=== PATIENT | female | born 1955 | race Caucasian/White ===

== ENCOUNTER 2025-02-26 10:25 | Inpatient (IN) | payer MEDICARE ==
[2025-02-26] VITALS (11 sets, daily range): BP systolic 103–154; BP diastolic 65–90; PULSE 59–73; RESP 14–21; TEMP 97.3–98.2; O2SAT 93–98
[~2025-02-26] VITALS: Ht 152.4 cm; Wt 53.1 kg
[2025-02-26] MEDS ORDERED: NIFEDIPINE ER30 M1 PO (11:35)
[2025-02-26] MEDS ORDERED: CARVEDILOL3.125 MG PO (11:35)
[2025-02-26 13:48] LABS: ANION GAP 15.7 mmol/L (8-16); CALCIUM 8.7 mg/dL (8.4-10.2); CREATININE, SERUM 0.69 mg/dL (0.57-1.11); POTASSIUM 3.7 mmol/L (3.5-5.1)
[2025-02-26] MEDS ORDERED: LIDOCAINE 4% PATCH TP PRN (14:00)
[2025-02-26] MEDS ORDERED: ALBUTEROL/IPRATROPIUM 3 ML NEB NEB PRN (14:00)
[2025-02-26] MEDS ORDERED: ONDANSETRON HCL INJ 2MG/ML 2ML 2 MG/ML VIAL IV PRN (14:00)
[2025-02-26] MEDS ORDERED: DOCUSATE SODIUM 100 MG CAP PO PRN (14:00)
[2025-02-26] MEDS ORDERED: SIMETHICONE 80 MG CHEW PO PRN (14:00)
[2025-02-26] MEDS ORDERED: DEXTROSE 50% SYRINGE 50 ML IV PRN (14:00)
[2025-02-26] MEDS ORDERED: POTASSIUM CHLORIDE 20 MEQ TAB CR PO PRN (14:00)
[2025-02-26] MEDS ORDERED: MELATONIN 5 MG TABLET PO PRN (14:00)
[2025-02-26] MEDS ORDERED: DIPHENHYDRAMINE HCL 25 MG CAP PO PRN (14:00)
[2025-02-26] MEDS ORDERED: HYDRALAZINE HCL 20 MG/ML VIAL IV PRN (14:00)
[2025-02-26] MEDS ORDERED: ACETAMINOPHEN 325 MG TAB PO PRN (14:00)
[2025-02-26] MEDS ORDERED: BENZONATATE 100 MG CAP PO PRN (14:00)
[2025-02-26] MEDS: SODIUM CHLORIDE 0.9% 1000ML 1,000 ML IV SCH (15:36)
[2025-02-26] MEDS: FUROSEMIDE INJ 10 MG/ML 2 ML VIAL IV ONE (15:44)
[2025-02-26 15:51] LABS: CREATININE,URINE RANDOM 29.56 mg/dL (47-110)
[2025-02-26 15:52] LABS: TOTAL PROTEIN, URINE < 6.8 mg/dL (1-14)
[2025-02-26 16:10] LABS: BACTERIA,URINE FEW /HPF; BILIRUBIN,URINE NEGATIVE (NEGATIVE); CLARITY,URINE CLEAR (CLEAR); COLOR,URINE YELLOW (YELLOW); EPITHELIAL CELLS,URINE FEW /LPF; GLUCOSE, URINE NEGATIVE (NEGATIVE); KETONES,URINE TRACE (NEGATIVE); LEUKOCYTE ESTERASE ,URINE NEGATIVE (NEGATIVE); NITRITE,URINE NEGATIVE (NEGATIVE); PH,URINE 7 (5 - 7); PROTEIN,URINE DIPSTICK NEGATIVE (NEGATIVE); RBC,URINE 0-5 /HPF (0-5); URINE UROBILINOGEN 0.2 mg/dL (0.2 - 1); WBC,URINE (MAN) 0-5 /HPF (0-5)
[2025-02-26 16:13] LABS: ALBUMIN 4.2 g/dL (3.5-5.0); BILIRUBIN,DIRECT 0.6 mg/dL (0.0-0.5); BILIRUBIN,TOTAL 1.3 mg/dL (0.2-1.2); TOTAL PROTEIN 6.5 g/dL (6.5-8.1)
[2025-02-26 16:32] LABS: THYROID STIMULATING HORMONE 1.141 uIU/mL (0.350-4.940)
[2025-02-26] MEDS: CARVEDILOL 3.125 MG TAB PO SCH (17:04)
[2025-02-26] MEDS: ENOXAPARIN SOD INJ 40 MG/0.4 ML SYR SC SCH (17:05)
[2025-02-26 17:57] LABS: BASOPHILS % 0.8 % (0.0-1.0); EOSINOPHILS # (AUTO) 0.1 (0.0-0.4); EOSINOPHILS % 2.3 % (0.0-6.0); HEMATOCRIT 31.6 % (34.2-44.1); HEMOGLOBIN 11.5 g/dL (12.0-16.0); LYMPHOCYTES # (AUTO) 0.9 (1.0-3.2); LYMPHOCYTES % 18.6 % (18.0-39.1); MEAN CORPUSCULAR HEMOGLOBIN 31.3 pg (28-32); MEAN CORPUSCULAR HGB CONC 36.4 g/dL (31-35); MEAN CORPUSCULAR VOLUME 86.1 fL (81-99); MONOCYTES # (AUTO) 0.6 (0.2-0.8); MONOCYTES % 11.3 % (4.4-11.3); NEUTROPHILS # (AUTO) 3.2 (2.1-6.9); NEUTROPHILS % 66.8 % (38.7-80.0); PLATELET COUNT 215 x10e3/uL (140-360); RED BLOOD COUNT 3.67 x10e6/uL (3.6-5.1); RED CELL DISTRIBUTION WIDTH 11.9 % (11.7-14.4); WHITE BLOOD COUNT 4.85 x10e3/uL (4.8-10.8)
[2025-02-26 20:12] LABS: ANION GAP 14.8 mmol/L (8-16); CALCIUM 7.4 mg/dL (8.4-10.2); CREATININE, SERUM 0.85 mg/dL (0.57-1.11); POTASSIUM 3.8 mmol/L (3.5-5.1)
[2025-02-27] VITALS (10 sets, daily range): BP systolic 120–167; BP diastolic 61–79; PULSE 59–108; RESP 10–27; TEMP 97.7–98; O2SAT 90–99
[2025-02-27 07:09] LABS: EOSINOPHILS # (AUTO) 0.1 (0.0-0.4); EOSINOPHILS % 1.7 % (0.0-6.0); HEMATOCRIT 29.3 % (34.2-44.1); HEMOGLOBIN 10.4 g/dL (12.0-16.0); LYMPHOCYTES # (AUTO) 0.8 (1.0-3.2); LYMPHOCYTES % 18.5 % (18.0-39.1); MEAN CORPUSCULAR HEMOGLOBIN 31.3 pg (28-32); MEAN CORPUSCULAR HGB CONC 35.5 g/dL (31-35); MEAN CORPUSCULAR VOLUME 88.3 fL (81-99); MONOCYTES # (AUTO) 0.6 (0.2-0.8); MONOCYTES % 13.4 % (4.4-11.3); NEUTROPHILS # (AUTO) 2.7 (2.1-6.9); NEUTROPHILS % 65.2 % (38.7-80.0); PLATELET COUNT 193 x10e3/uL (140-360); RED BLOOD COUNT 3.32 x10e6/uL (3.6-5.1); RED CELL DISTRIBUTION WIDTH 12.3 % (11.7-14.4); WHITE BLOOD COUNT 4.17 x10e3/uL (4.8-10.8)
[2025-02-27 07:41] LABS: ANION GAP 14.5 mmol/L (8-16); CALCIUM 8.2 mg/dL (8.4-10.2); CREATININE, SERUM 0.71 mg/dL (0.57-1.11); POTASSIUM 3.5 mmol/L (3.5-5.1)
[2025-02-27] MEDS: PANTOPRAZOLE SOD 40 MG TABEC PO SCH (07:47)
[2025-02-27] MEDS: NIFEDIPINE CR 30 MG TAB PO SCH (07:48)
[2025-02-27 16:25] LABS: ANION GAP 15.1 mmol/L (8-16); CREATININE, SERUM 0.88 mg/dL (0.57-1.11); POTASSIUM 4.1 mmol/L (3.5-5.1)
[2025-02-27 16:34] LABS: BLOOD UREA NITROGEN 13 mg/dL (7-26); GLUCOSE 101 mg/dL (74-118); OSMOLALITY,SERUM 252 mOsm/kg (278-305); SODIUM 125 mmol/L (136-145)
[2025-02-27] MEDS ORDERED: SODIUM CHLORIDE 452MG TAB PO ONE (20:30)
[2025-02-27] MEDS ORDERED: SODIUM CHLORIDE 1 GM TAB PO SCH (20:30)
[2025-02-28] VITALS (28 sets, daily range): BP systolic 119–174; BP diastolic 65–100; PULSE 59–84; RESP 12–23; TEMP 97.9–98.4; O2SAT 84–100
[2025-02-28 06:46] LABS: BASOPHILS # (AUTO) 0.1 (0.0-0.1); BASOPHILS % 1.1 % (0.0-1.0); EOSINOPHILS # (AUTO) 0.1 (0.0-0.4); EOSINOPHILS % 2.2 % (0.0-6.0); HEMATOCRIT 29.8 % (34.2-44.1); HEMOGLOBIN 10.3 g/dL (12.0-16.0); LYMPHOCYTES # (AUTO) 0.9 (1.0-3.2); LYMPHOCYTES % 19.2 % (18.0-39.1); MEAN CORPUSCULAR HEMOGLOBIN 31.4 pg (28-32); MEAN CORPUSCULAR HGB CONC 34.6 g/dL (31-35); MEAN CORPUSCULAR VOLUME 90.9 fL (81-99); MONOCYTES # (AUTO) 0.7 (0.2-0.8); NEUTROPHILS # (AUTO) 2.9 (2.1-6.9); NEUTROPHILS % 63.3 % (38.7-80.0); PLATELET COUNT 209 x10e3/uL (140-360); RED BLOOD COUNT 3.28 x10e6/uL (3.6-5.1); RED CELL DISTRIBUTION WIDTH 12.8 % (11.7-14.4); WHITE BLOOD COUNT 4.63 x10e3/uL (4.8-10.8)
[2025-02-28 07:26] LABS: ANION GAP 12.9 mmol/L (8-16); CALCIUM 8.4 mg/dL (8.4-10.2); CREATININE, SERUM 0.67 mg/dL (0.57-1.11); POTASSIUM 3.9 mmol/L (3.5-5.1)
[2025-02-28] MEDS: SODIUM CHLORIDE 1 GM TAB PO SCH (16:50)
[2025-03-01] VITALS (11 sets, daily range): BP systolic 109–160; BP diastolic 66–86; PULSE 63–94; RESP 16–20; TEMP 97.4–98.7; O2SAT 92–100
[2025-03-01] MEDS: FUROSEMIDE INJ 10 MG/ML 2 ML VIAL IV ONE (11:32)
[2025-03-02 03:25] VITALS: BP 130/69; PULSE 69; RESP 18; TEMP 98.1; O2SAT 95
[2025-03-02 06:08] LABS: ANION GAP 12.6 mmol/L (8-16); CALCIUM 8.4 mg/dL (8.4-10.2); CREATININE, SERUM 0.74 mg/dL (0.57-1.11); POTASSIUM 3.6 mmol/L (3.5-5.1)
[2025-03-02 06:17] VITALS: PULSE 87; RESP 22; O2SAT 96
[2025-03-02 08:58] VITALS: BP 169/86; PULSE 69; RESP 18; TEMP 97.9; O2SAT 98
[2025-03-02 09:00] VITALS: BP 169/86; PULSE 69; RESP 18; TEMP 97.9; O2SAT 98
[2025-03-02 11:30] VITALS: BP 128/71; PULSE 58; RESP 20; TEMP 98.1; O2SAT 100
== END 2025-03-02 16:50 | disposition home or self-care (01) | DRG 645 ==
LOC: OBSVTOIN 10:30 → MED/SURG3 10:30 → ICU 17:43 → MED/SURG 02-28 20:16
PROVIDERS: ADMIT Internal Medicine; ATTEND Internal Medicine
DX: E22.2 Syndrome of inappropriate secretion of antidiuretic hormone (principal); I25.10 Atherosclerotic heart disease of native coronary artery without angina pectoris; I10 Essential (primary) hypertension; R60.0 Localized edema; Z88.0 Allergy status to penicillin; Z87.891 Personal history of nicotine dependence
CPT/HCPCS: 36415; 71045; 76770; 80048; 80076; 81001; 82570; 82947; 83880; 83930; 83935; 84156; 84295; 84300; 84443; 84520; 84550; 85025; 93970; 94799; 99252; J1650; J1938; J2470; J7030